=== PATIENT | female | born 1965 | race Caucasian/White ===

== ENCOUNTER 2016-10-29 08:53 | Day surgery (SDC) | payer OTHER ==
[~2016-10-29] VITALS: Ht 163.8 cm; Wt 63.8 kg
[2016-10-29] VITALS (8 sets, daily range): BP systolic 105–125; BP diastolic 65–87; PULSE 45–86; RESP 12–18; O2SAT 98–100
[~2016-10-29 08:53] MED LIST: ALPH600C3 PO; CARNITINE; CHOL10008 PO; CeFAZolin Inj 2 GM in IV Premix 1 EACH IV ONE; ESTR42.52 VG; EVE1000C3 PO; GAMM1POW MC; GLUTAMINE; L.AC1CAP6 PO
[2016-10-29] MEDS ORDERED: Propofol 10,000 mCg/mL 20 mL Inj ONE (08:54)
[2016-10-29] MEDS ORDERED: Glycopyrrolate 0.2 MG/ML 1mL Inj ONE (08:54)
[2016-10-29] MEDS ORDERED: fentaNYL-PF 50 mCg/mL 2 mL Inj ONE (08:54)
[2016-10-29] MEDS ORDERED: Dexamethasone 4 mg/mL Inj ONE (08:54)
[2016-10-29] MEDS: Lactated Ringer's 1,000 ML IV SCH ×2 (09:09→10:11)
[2016-10-29] MEDS ORDERED: Lactated Ringer's 500 ML IV PRN (10:01)
[2016-10-29] MEDS ORDERED: Lactated Ringer's 1,000 ML IV SCH (10:01)
--- NOTE | 2016-10-29 10:01 | PCM.HPANE ---
Patient Data Surgeon Admitting Provider: Attending Provider:Lakeisha Covarrubias DPM Primary Care Physician:Sommer Padilla ND Other Provider:Jim Schmidt Anesthesia Reason for Visit Ocd Talus, Degenerative Joint Disease Right Ankle Ht/WT & BMI Height (Feet): 5 Height (Inches): 4.5 Weight (Kilograms): 63.8 Body Mass Index 23.00 Allergies Uncoded Allergies: ADHESIVE TAPES (Allergy, Unknown, reddness, 10/28/16) Past Anesthesia History Anesthesia History: Denies:: Abnormal Airway, Anesthesia Reactions, Difficult Intubation, Fam Anesthesia Reaction, Fam Malignant Hypertherm, Malignant Hyperthermia Diabetes History Hx Diabetes?: No MRSA MRSA: No Medications Hypertension Medication: No Home Meds Incl Beta Zachery: No Reported Medications Cholecalciferol (Vitamin D3) (Vitamin D3)1,000 Unit Tab.chew1,000 Unit PO DAILY 10/28/16 L.acidoph & Paracasei,B.lactis (Probiotic)10 Billion Cell Capsule1 Each PO DAILY 10/28/16 [L-glutamine] No Conflict CheckUnknown Dose BID 10/28/16 Gamma-Aminobutyric Acid (Aminobutyric Acid)1 Gm Powder1 Gm MC DAILY 10/28/16 Salome [place]/Linoleic/Gamoleni (Evening [place] 1,000 mg Sftg)1,000 Mg Capsule1 ,000 Mg PO BID 10/28/16 Estradiol (Estrace)42.5 Gm Cream.appl1 G VG 2xweekly #1 TUBE Ref 0 10/28/16 [carnitine] No Conflict [id number] Mg DAILY 10/28/16 Alpha Lipoic Acid 600 Mg [id number] Mg PO DAILY 10/28/16 Discontinued Reported Medications Progesterone,Micronized (Progesterone)100 Mg [id number] Mg PO DAILY 01/02/15 Estradiol 0.5 Mg Tablet0.5 Mg PO DAILY 30 Days Ref 0 01/02/15 [place]-3 Fatty Acids ([place] 1,000 mg Softgel)1 Each Capsule1 Each PO DAILY 01/02/15 Cholecalciferol (Vitamin D3) (D3-2000)2,000 Unit Capsule2,000 Unit PO 12/30/14 History HEENT History: Denies:: Abnormal Airway Difficult Intubation Dysphagia Hearing Problem Hx of Heart Problems?: No Cardiovascular History: Denies:: AICD Atrial Fibrillation Chest Pain Hypertension Pacemaker Valvular Heart Disease Hx of Respiratory Problem?: No Respiratory History: Denies:: Asthma COPD Cough Hemoptysis Oxygen Administration Pneumonia Tuberculosis Use of C-PAP Machine Neurological History: Denies:: CVA Dementia Multiple Sclerosis Parkinson's Disease Seizures Hx of GI Problems?: No Gastrointestinal History: Denies:: Cirrhosis Diverticulitis Gastroesphageal Reflux Hiatal Hernia Rectal Bleeding Female Hx: Denies:: Currently (hx hysterectomy) Skin History: Denies:: History Skin Disorders? Hx Musculoskeletal Problems?: Yes Musculoskeletal History: Positive for:: Musculoskeletal Trauma (right ankle current admission problem) Osteoarthritis Denies:: Joint Replacement Psycho Social History: Denies:: Anxiety Hx Depression Hx Surgeries?: Yes (hysterectomy ) Hx Any Other Health Problems?: Yes Other History: Denies:: Cancer Thyroid Disease Hx Diabetes: No Hx Alcohol Use: YesAlcoholic Drinks Per Day: 2x weeklyHx Substance Use: No Smoking Status: Never Smoker Have You Smoked inLast 12 mo: No Stop/Bang P-Blood Pressure: treated: No B- Body Mass Index > 35 kg/m2: No A- Age over 50: Yes N- Neck Large Circumference: No G- Gender Male: No ALON Risk Assessment: Low Risk, <3 Yes Risk Assessment Category Category 1A: Patient has history of documented sleep apnea, and HAS NOT received any narcotic, sedative or anesthesia administration during this stay. Category 1B: Patient has history of documented sleep apnea, and HAS received any narcotic , sedative or anesthesia administration during this stay Category 2: Patient has SUSPECTED Obstructive Sleep Apnea, and HAS received any narcotic , sedative or anesthesia administration during this stay. Category 3: Patient has SUSPECTED Obstructive Sleep Apnea and HAS NOT received narcotic, sedative or anesthesia administration during this stay. Category 4: Outpatient in Procedural Areas with known sleep apnea or who screen positive for High Risk via the STOP/BANG questionnaire. Exam Exam Vital Signs Vital Signs Date Time Temp Pulse Resp B/P Pulse Ox O2 Delivery O2 Flow Rate FiO2 10/29/16 09:21 36 49 16 105/74 100 Room Air General Appearance: Alert, Oriented X3, Cooperative, No Acute Distress HEENT/AIRWAY: MP 2 Lungs: Clear to Auscultation, Normal Air Movement Heart: Exam Unremarkable, Regular Rate/Rhythm, No Murmurs/Rubs/Gallops Meds/Labs/Diagnostics Admission Meds Current Medications Lactated Ringer's (Lr) 1,000 ml @ 120 mls/hr [id number] IV Last administered on t 09:09; Start 10/29/16 at 05:00; Stop 10/29/16 at 13:19 Plan Impression Patient chart reviewed, patient interviewed and anesthestic plan with risks, benefits, and alternatives discussed, and informed consent obtained. NPO Status: 1930 10/28/16 ASA Physical Status: ASA1 Normal Healthy Anesthetic Plan: GA Bene/Risks/Altern/Consents: Yes HP Complete Prior to Induction: Yes Emmett Osborne MD Oct 29, 2016 10:01
[2016-10-29] MEDS ORDERED: Phenylephrine 10,000 mCg/mL Inj IVPUSH PRN (10:05)
[2016-10-29] MEDS ORDERED: EPHEDrine Sulfate 50 mg/mL Inj IVPUSH PRN (10:05)
[2016-10-29] MEDS ORDERED: Atropine 0.4 mg/mL Inj IVPUSH PRN (10:05)
[2016-10-29] MEDS ORDERED: HYDROmorphone 1 mg/mL Inj IVPUSH PRN (10:05)
[2016-10-29] MEDS ORDERED: MetoCLOpramide 5 mg/mL 2 mL Inj IVPUSH PRN (10:05)
[2016-10-29] MEDS ORDERED: fentaNYL-PF 50 mCg/mL 2 mL Inj IVPUSH PRN (10:05)
[2016-10-29] MEDS ORDERED: Ondansetron 2 mg/mL 2 mL Inj IVPUSH PRN (10:05)
[2016-10-29] MEDS ORDERED: Labetalol 5 mg/mL 4 mL Inj IV PRN (10:05)
[2016-10-29] MEDS ORDERED: Lidocaine 2%-Epi 1:100,000 20 mL Inj NERVEBLOCK ONE (10:17)
[2016-10-29] MEDS ORDERED: oxyCODONE-Acetamin 5-325 mg Tablet PO PRN (12:00)
--- NOTE | 2016-10-29 12:10 | PCM.PODPO ---
Podiatry Operative Report Date of Service: Oct 29, 2016 Date of Service Oct 29, 2016 Pre Operative Diagnosis Right talar osteochondral lesion and loose bodies and right ankle. Loose bodies dorsal talonavicular joint, right foot. Post Operative Diagnosis Right talar osteochondral lesion and loose bodies and right ankle. Loose bodies dorsal talonavicular joint, right foot. Procedure Right ankle arthroscopy with subsequent open arthrotomy and excision of osteochondral lesion with subchondral microfracture. Open talonavicular synovectomy and loose body excision, right foot. Surgeon Surgeon: Lakeisha Covarrubias DPM Assistants: None Indication for Procedure Limitation of joint range of motion due to loose body formation at the ankle and talonavicular joint, right lower extremity. Findings Consistent with MRI findings. Osteochondral lesion of the talus appeared nonviable. Underlying bone showed good bleeding with fenestration. Dorsal talonavicular loose body was interfering with talonavicular joint range of motion. This improved after excision of loose body. Details of Procedure The patient was identified in the preoperative holding area and brought back to the operating room. She was placed on the operating table in supine position. Her right leg was elevated on the foam wedge. The timeout protocol was completed in the patient's name and site of surgery confirmed. Local anesthetic was administered intra-articularly and anterior ankle block was administered. Medial and lateral anterior portals were used for ankle arthroscopy. Only visualization of the large osteochondral fragment was done with the scope. The ankle joint capsule was incised laterally, making sure to protect neurovascular structures and ligamentous structures. The osteochondral lesion was identified, freed with a freer elevator and removed with a rongeur. The underlying subchondral bone appeared viable. A 0.045 inch K wire was used to microfracture the subchondral plate. Irrigation was done with normal saline , does capsular structures closed with 3-0 Vicryl, subcutaneous tissue with 4-0 Vicryl, and skin with Prolene suture. An anterior medial incision was made to expose the dorsal aspect of the talonavicular joint. Soft tissues were incised systematically, making sure to avoid neurovascular structures and the tibialis anterior tendon. The impinging loose body was found on the dorsal aspect of the talonavicular joint. With the capsule open the fragment was impinging with dorsiflexion of the ankle. Once the fragment was excised, range of motion improved. Irrigation was performed with normal saline, fluoroscopic confirmation done for both. Deep soft tissue was closed with 3-0 Vicryl, subcutaneous tissue with 4-0 Vicryl and skin with Prolene suture. The dressing consisted of [place] silk, 4 x 4 moistened gauze, Kerlix and Galileo wrap. A postoperative boot was fitted. The patient was weaned off of general anesthesia and taken to the recovery room with vital signs stable and the right lower extremity vascular status intact. Grafts, Implants: None Complications There were no periprocedural complications identified. Condition Stable Anesthetic Administered: GA Drains: None Catheters: None Output, Estimated Blood Loss: 5 (ml) Blood Admin during surgery: No Surgical Cast or Splint: Post-op Boot Surgical Specimen Removed: No Specimen sent to Pathology: No Post Operative Plan Weightbearing as tolerated in Western walker. The size of the lesion did not warrants having to be nonweightbearing, but immobilization of the ankle joint while weightbearing is crucial. Early nonweightbearing range of motion will be instructed in one week. The patient will be discharged home with by mouth analgesics previously written. Lakeisha Covarrubias DPM Oct 29, 2016 12:10
--- NOTE | 2016-10-29 12:21 | PCM.ANEP1 ---
Post Anesthesia Phase 1 PACU Phase 1 Assessment Date of Service: Oct 29, 2016 Vital Signs Vital Signs Date Time Temp Pulse Resp B/P Pulse Ox O2 Delivery O2 Flow Rate FiO2 10/29/16 09:21 36 49 16 105/74 100 Room Air Anesthetic Administered: GA Level of Alertness: Awake, talking AVILA's with Equal Strength: Yes Pain: No Nausea or Vomiting: No Oxygen Delivery: Simple Mask Lungs: Clear to Auscultation, Normal Air Movement Summary VSS, see IT PROGRAM MANAGER notes Emmett Osborne MD Oct 29, 2016 12:21
--- NOTE | 2016-10-29 12:22 | PCM.ANEP2 ---
Post Anesthesia Evaluation ASA/CMS Post Anesthesia VS in Patient's Normal Range?: Yes Resp Stable; Airway Patent?: Yes CV Function & Hydration Stable: Yes Mental Status Recovered?: Yes Pain control Satisfactory?: Yes N/V Control Satisfactory?: Yes Emmett Osborne MD Oct 29, 2016 12:22
== END 2016-10-29 23:59 | disposition home or self-care (01) ==
LOC: SAS 08:53
PROVIDERS: ATTEND Podiatrist
DX: M93.271 Osteochondritis dissecans, right ankle and joints of right foot (principal); M67.873 Other specified disorders of tendon, right ankle and foot; M12.571 Traumatic arthropathy, right ankle and foot; M95.8 Other specified acquired deformities of musculoskeletal system; S93.491S Sprain of other ligament of right ankle, sequela; X50.1XXS Overexertion from prolonged static or awkward postures, sequela; Y92.9 Unspecified place or not applicable; Z90.710 Acquired absence of both cervix and uterus; Z79.890 Hormone replacement therapy; Z53.33 Arthroscopic surgical procedure converted to open procedure
CPT/HCPCS: 28020; 28100; 28899; J0690; J1100; J1885; J3010; J7120